=== PATIENT | female | born 1985 | race Hispanic/Latino ===

== ENCOUNTER 2022-08-23 05:34 | Observation (INO) | payer OTHER ==
[2022-08-19 14:46] VITALS: BP 144/82
[2022-08-19 14:55] LABS: BASOPHILS % (AUTO) 0.5 % (0.0-5.0); HEMATOCRIT 34.5 % (36-48); LYMPHOCYTES % (AUTO) 28.4 % (21.0-51.0); MEAN CORPUSCULAR HEMOGLOBIN 25.8 pg (27.0-33.0); MEAN CORPUSCULAR HGB CONC 31.6 g/dL (32.0-36.0); MEAN CORPUSCULAR VOLUME 81.8 fL (79-99); MONOCYTES % (AUTO) 7.2 % (3.0-13.0); NEUTROPHILS % (AUTO) 62.6 % (40.0-77.0); PLATELET COUNT (AUTO) 310 K/uL (130-400); RED BLOOD CELL COUNT(AUTO) 4.22 MIL/uL (4.00-5.50); RED CELL DISTRIBUTION WIDTH 13.2 % (11.0-15.5); WHITE BLOOD COUNT (AUTO) 6.2 K/uL (4.8-10.8)
[2022-08-19 15:01] LABS: APPEARANCE,URINE CLOUDY (CLEAR); BILIRUBIN,URINE NEGATIVE (NEGATIVE); COLOR,URINE YELLOW (YELLOW); GLUCOSE, URINE (UA) NEGATIVE (NEGATIVE); KETONES,URINE NEGATIVE (NEGATIVE); LEUKOCYTE ESTERASE ,URINE 500 Leu/uL (NEGATIVE); NITRATE,URINE NEGATIVE (NEGATIVE); OCCULT BLOOD,URINE LARGE (NEGATIVE); PH,URINE 5.5 (5.0-8.0); PROTEIN,URINE 10 mg/dL (NEGATIVE); UROBILINOGEN,URINE 0.2 mg/dL (0.2-1.0)
[2022-08-19 15:11] LABS: BACTERIA,URINE MOD /HPF (None Seen); MUCUS,URINE MOD LPF (None Seen); SQUAMOUS EPITHELIAL CELL,UR MANY /HPF (0-2); WBC,URINE 26-50 /HPF (0-1)
[~2022-08-23] VITALS: Ht 160 cm; Wt 71.7 kg
[2022-08-23] VITALS (28 sets, daily range): BP systolic 110–158; BP diastolic 60–98
[2022-08-23] MEDS ORDERED: CEFAZOLIN SODIUM 1 GM VIAL IVPB SCH (06:00)
[2022-08-23] MEDS ORDERED: LACTATED RINGERS 1000ML 1,000 ML IV ONE (08:07)
[2022-08-23] MEDS ORDERED: LIDOCAINE PF 100MG/5ML (2%) SYRINGE 5ML ONE (08:24)
[2022-08-23] MEDS ORDERED: ROCURONIUM 10MG/1ML SYR 10 MG/ML ML ONE (08:25)
[2022-08-23] MEDS ORDERED: FENTANYL CITRATE PF 50 MCG/1 ML 2ML VIAL ONE ×2 (08:25→10:58)
[2022-08-23] MEDS ORDERED: MIDAZOLAM HCL 1 MG/ML 2ML VIAL ONE (08:25)
[2022-08-23] MEDS ORDERED: PROPOFOL 10 MG/ML 20ML VIAL IV ONE (08:25)
[2022-08-23] MEDS ORDERED: CEFAZOLIN SODIUM 2 GM VIAL IVPB ONE (09:14)
[2022-08-23] MEDS ORDERED: DEXAMETHASONE SOD PHOSPHATE 4 MG/ML 1ML VIAL ONE (09:21)
[2022-08-23] MEDS ORDERED: ONDANSETRON 4MG INJ ONE (09:21)
[2022-08-23] MEDS ORDERED: MEPERIDINE-PF 25 MG/ML SYG ONE ×3 (10:24→11:51)
[2022-08-23] MEDS ORDERED: GLYCOPYRROLATE 1 MG/5 ML SYRINGE ONE (10:30)
[2022-08-23] MEDS ORDERED: NEOSTIGMINE 5MG/5ML SYR IV ONE (10:30)
[2022-08-23] MEDS: DEXTROSE 5 %-0.45 % NACL 1,000 ML IV SCH ×2 (12:26→20:00)
[2022-08-23] MEDS ORDERED: BISACODYL 10 MG SUPP.RECT RC PRN (12:30)
[2022-08-23] MEDS ORDERED: SIMETHICONE 80 MG TAB.CHEW PO PRN (12:30)
[2022-08-23] MEDS ORDERED: DOCUSATE SODIUM 100 MG CAP PO PRN (12:30)
[2022-08-23] MEDS ORDERED: ONDANSETRON 4MG INJ IVP PRN (12:30)
[2022-08-23] MEDS ORDERED: IBUPROFEN 600 MG TABLET PO PRN (12:30)
[2022-08-23] MEDS ORDERED: PROMETHAZINE HCL 25 MG/ML 1ML AMPULE IM PRN (12:30)
[2022-08-23] MEDS: ACETAMINOPHEN WITH CODEINE 1 TAB TAB PO PRN (12:31)
[2022-08-23] MEDS ORDERED: PHENAZOPYRIDINE HCL 200 MG TABLET PO SCH (14:00)
[2022-08-23] MEDS: PROMETHAZINE HCL 25 MG/ML 1ML AMPULE IM PRN ×2 (14:08→19:51)
[2022-08-23] MEDS: MEPERIDINE-PF 75 MG/ML SYG IM PRN ×2 (14:09→19:50)
[2022-08-23] MEDS: NITROFURANTOIN MONOHYD/M-CRYST 100 MG CAPSULE PO SCH (21:51)
[2022-08-24] MEDS: ACETAMINOPHEN WITH CODEINE 1 TAB TAB PO PRN (03:19)
[2022-08-24] MEDS: DEXTROSE 5 %-0.45 % NACL 1,000 ML IV SCH (03:32)
[2022-08-24 03:33] VITALS: BP 138/87
[2022-08-24] MEDS: PROMETHAZINE HCL 25 MG/ML 1ML AMPULE IM PRN (05:05)
[2022-08-24] MEDS: MEPERIDINE-PF 75 MG/ML SYG IM PRN (05:05)
[2022-08-24] MEDS ORDERED: SIMETHICONE 80 MG TAB.CHEW PO PRN (06:00)
[2022-08-24] MEDS ORDERED: BISACODYL 10 MG SUPP.RECT RC PRN (06:00)
[2022-08-24] MEDS ORDERED: ACETAMINOPHEN WITH CODEINE 1 TAB TAB PO PRN (06:00)
[2022-08-24] MEDS ORDERED: DOCUSATE SODIUM 100 MG CAP PO PRN (06:00)
[2022-08-24] MEDS ORDERED: HYDROCODONE/ACETAMINOPHEN 5/325 MG TAB PO PRN (06:00)
[2022-08-24] MEDS ORDERED: IBUPROFEN 800 MG TAB PO PRN (06:00)
[2022-08-24 06:22] LABS: BASOPHILS % (AUTO) 0.1 % (0.0-5.0); EOSINOPHILS % (AUTO) 0.1 % (0.0-8.0); LYMPHOCYTES % (AUTO) 17.6 % (21.0-51.0); MEAN CORPUSCULAR HEMOGLOBIN 25.3 pg (27.0-33.0); MEAN CORPUSCULAR VOLUME 81.8 fL (79-99); MONOCYTES % (AUTO) 8.3 % (3.0-13.0); NEUTROPHILS % (AUTO) 73.7 % (40.0-77.0); PLATELET COUNT (AUTO) 231 K/uL (130-400); RED BLOOD CELL COUNT(AUTO) 3.79 MIL/uL (4.00-5.50); RED CELL DISTRIBUTION WIDTH 12.9 % (11.0-15.5); WHITE BLOOD COUNT (AUTO) 9.1 K/uL (4.8-10.8)
[2022-08-24 07:53] VITALS: BP 127/83
[2022-08-24] MEDS: NITROFURANTOIN MONOHYD/M-CRYST 100 MG CAPSULE PO SCH (09:11)
[2022-08-24 11:40] VITALS: BP 137/79
== END 2022-08-24 15:00 | disposition home or self-care (01) ==
LOC: DAH 05:34 → WSH 05:35 → DAH 05:35
PROVIDERS: ADMIT Obstetrics & Gynecology; ATTEND Obstetrics & Gynecology
DX: N92.1 Excessive and frequent menstruation with irregular cycle (principal); Z20.822 Contact with and (suspected) exposure to COVID-19; D52.9 Folate deficiency anemia, unspecified; D25.9 Leiomyoma of uterus, unspecified; N81.5 Vaginal enterocele; Z79.899 Other long term (current) drug therapy; Z98.890 Other specified postprocedural states
CPT/HCPCS: 84703; 85025 ×2; 86850 ×2; 86900 ×2; 86901 ×2; 87088; 87426; 81001; 36415 ×3; 58263; 96372 ×2; A6260; G0378 ×30; G0379; A4663; J7120 ×2; A4351; A4606; J3010 ×2; J0690 ×2; J3490; J2710; J2550 ×3; J2001; J2250; J2704; J2405; J1100; J2175 ×6; A4649; A4215; A4223; A4222; A4221; A4600; A4510; L0625